=== PATIENT | female | born 1965 | race Caucasian/White ===

== ENCOUNTER 2025-08-19 06:55 | Outpatient (CLI) | payer OTHER ==
[~2025-08-19] VITALS: Ht 162.6 cm; Wt 56.7 kg
[2025-08-19 09:30] VITALS: BP 114/70; O2SAT 100
[2025-08-19 10:00] VITALS: BP 110/66; O2SAT 99
[2025-08-19 10:15] VITALS: BP 119/75; O2SAT 100
[2025-08-19 10:30] VITALS: BP 106/69; O2SAT 98
== END 2025-08-23 16:31 | disposition home or self-care (01) ==
LOC: TOM 06:55
DX: N94.89 Other specified conditions associated with female genital organs and menstrual cycle (principal)

== ENCOUNTER → 2025-08-19 11:36 | Outpatient (CLI) | payer OTHER | END | disposition home or self-care (01) | LOC: LAB 11:36 | PROVIDERS: ATTEND Radiology Diagnostic Radiology | DX: N73.9 Female pelvic inflammatory disease, unspecified (principal) ==